=== PATIENT | male | born 1930 | race Caucasian/White ===

== ENCOUNTER → 2016-09-21 | Outpatient (CLI) | payer MEDICARE, OTHER ==
[~2016-09-21] MED LIST: ASA325 MG PO; COREG DPS6.25 MG PO; COZAAR DPS25 MG PO; DOCUSATE CALCI240 MG PO; DULCOLAX-DPS10 MG PR; ISORDIL DPS30 MG PO; LEVAQUIN DPS500 MG PO; LIDODERM PATC1 PATCH TP; LUTEIN-ZEAXANT1 EACH PO; MEVACOR20 MG PO; MIRALAX PACKET17 GM PO; OMEGA-3 DPS1000 MG PO; PROSCAR DPS5 MG PO; SLO NIACIN DPS500 MG PO; SYNTHROID DP0.175 MG PO; TYLENOL DPS325 MG PO; ULTRAM DPS50 MG PO; [UNRECOGNIZED DRUG - OTHER] PO
== END | disposition home or self-care (01) ==
LOC: RAD.S 08:30
DX: R91.8 Other nonspecific abnormal finding of lung field (principal); I25.10 Atherosclerotic heart disease of native coronary artery without angina pectoris; R59.0 Localized enlarged lymph nodes